=== PATIENT | female | born 1970 | race Caucasian/White ===

== ENCOUNTER 2020-10-02 10:18 | Day surgery (SDC) | payer MEDICARE ==
[2020-10-02] MEDS ORDERED: BUPIVACAINE 0.5% VIAL IJ ONE (10:19)
[2020-10-02] MEDS ORDERED: DIPRIVAN 200 MG/20 ML IV ONE (12:09)
[2020-10-02] MEDS ORDERED: Ketamine HCl 50 MG/ML ONE (12:09)
--- NOTE | 2020-10-02 14:33 | XRAY ---
Indication: Ganglion impar nerve. Intraoperative fluoroscopy was provided for 29 seconds. Single lateral digital spot image submitted for interpretation demonstrates posterior needle tip projecting just anterior to the coccyx. Small amount of contrast injected for needle tip placement. Correlate with intraoperative findings/report.
--- NOTE | 2020-10-02 15:12 | XRAY ---
29 seconds fluoroscopy time in surgery for ganglian impar nerve injection.
[2020-10-02] MEDS ORDERED: Lactated Ringers 1,000 ML IV ONE (16:07)
== END 2020-10-02 12:36 | disposition home or self-care (01) ==
LOC: SDC-PAIN 10:18
PROVIDERS: ATTEND Psychiatry & Neurology Pain Medicine
DX: M53.3 Sacrococcygeal disorders, not elsewhere classified (principal); F41.8 Other specified anxiety disorders; Z79.899 Other long term (current) drug therapy
CPT/HCPCS: 64520; 72220; 77002; 84703; J2704

== ENCOUNTER 2021-01-08 10:31 | Day surgery (SDC) | payer MEDICARE ==
[2021-01-08] MEDS ORDERED: Depo-Medrol 40 MG/ML IM ONE (10:32)
[2021-01-08] MEDS ORDERED: LIDOCAINE HCL 2% 100 MG/5 ML IJ ONE (10:32)
[2021-01-08] MEDS ORDERED: Ketamine HCl 50 MG/ML ONE (11:51)
[2021-01-08] MEDS ORDERED: DIPRIVAN 200 MG/20 ML IV ONE (11:51)
--- NOTE | 2021-01-08 12:39 | XRAY ---
Indication: Left L4-S1 MBB Intraoperative fluoroscopy provided for 17 seconds. Single digital spot image submitted for interpretation demonstrates posterior needle tips projecting over the expected left L4-S1 nerve roots. Correlate with intraoperative findings/report.
[2021-01-08] MEDS ORDERED: Lactated Ringers 1,000 ML IV ONE (16:12)
--- NOTE | 2021-01-10 09:44 | XRAY ---
17 seconds fluoroscopy time in surgery for left L4-S1 MBB.
== END 2021-01-08 12:20 | disposition home or self-care (01) ==
LOC: SDC-PAIN 10:31
PROVIDERS: ATTEND Psychiatry & Neurology Pain Medicine
DX: M47.816 Spondylosis without myelopathy or radiculopathy, lumbar region (principal); F41.9 Anxiety disorder, unspecified; F32.9 Major depressive disorder, single episode, unspecified; I73.9 Peripheral vascular disease, unspecified; G56.00 Carpal tunnel syndrome, unspecified upper limb; Z79.899 Other long term (current) drug therapy
CPT/HCPCS: 64493; 64494; 72020; 77002; 84703; J1030; J2704

== ENCOUNTER 2021-03-26 13:07 | Day surgery (SDC) | payer MEDICARE ==
[2021-03-26] MEDS ORDERED: Sodium Chloride 0.9(Preservative Free) 10 ML IJ ONE (13:08)
[2021-03-26] MEDS ORDERED: Depo-Medrol 40 MG/ML IM ONE (13:08)
[2021-03-26] MEDS ORDERED: Xylocaine 1% Vial 30 ML PF IJ ONE (13:08)
[2021-03-26] MEDS ORDERED: DIPRIVAN 200 MG/20 ML IV ONE (14:54)
[2021-03-26] MEDS ORDERED: Lactated Ringers 1,000 ML IV ONE (16:21)
--- NOTE | 2021-03-26 16:50 | XRAY ---
19 seconds fluoroscopy time in surgery for caudal ADIEL.
--- NOTE | 2021-03-26 17:49 | XRAY ---
Indication: Caudal ADIEL. Intraoperative fluoroscopy provided for 19 seconds. 2 digital spot images submitted for interpretation demonstrates caudal needle tip projecting mid to lower sacrum. Small amount of contrast injected for needle tip placement. Correlate with intraoperative findings/report.
== END 2021-03-26 15:10 | disposition home or self-care (01) ==
LOC: SDC-PAIN 13:07
PROVIDERS: ATTEND Psychiatry & Neurology Pain Medicine
DX: M54.16 Radiculopathy, lumbar region (principal); F41.9 Anxiety disorder, unspecified; F32.9 Major depressive disorder, single episode, unspecified; G56.00 Carpal tunnel syndrome, unspecified upper limb; M25.551 Pain in right hip; Z79.899 Other long term (current) drug therapy
CPT/HCPCS: 62323; 72100; 77003; 84703; J1030; J2001; J2704; Q9966

== ENCOUNTER 2021-04-23 09:27 | Day surgery (SDC) | payer MEDICARE ==
[2021-04-23] MEDS ORDERED: Depo-Medrol 40 MG/ML IM ONE (09:28)
[2021-04-23] MEDS ORDERED: BUPIVACAINE 0.5% VIAL IJ ONE (09:28)
[2021-04-23] MEDS ORDERED: DIPRIVAN 200 MG/20 ML IV ONE ×2 (10:39→11:01)
[2021-04-23] MEDS ORDERED: Lactated Ringers 1,000 ML IV ONE (16:27)
--- NOTE | 2021-04-24 11:33 | XRAY ---
37 total seconds fluoroscopy time in surgery for bilateral injections of the SI joints.
== END 2021-04-23 11:27 | disposition home or self-care (01) ==
LOC: SDC-PAIN 09:27
PROVIDERS: ATTEND Psychiatry & Neurology Pain Medicine
DX: M46.1 Sacroiliitis, not elsewhere classified (principal); F41.9 Anxiety disorder, unspecified; F32.9 Major depressive disorder, single episode, unspecified; M25.551 Pain in right hip; Z79.899 Other long term (current) drug therapy
CPT/HCPCS: 27096; 72202; 77002; 84703; G0260; J1030; J2704

== ENCOUNTER 2021-06-11 10:54 | Day surgery (SDC) | payer MEDICARE ==
[2021-06-11] MEDS ORDERED: Depo-Medrol 40 MG/ML IM ONE (10:55)
[2021-06-11] MEDS ORDERED: BUPIVACAINE 0.5% VIAL IJ ONE (10:55)
[2021-06-11] MEDS ORDERED: DIPRIVAN 200 MG/20 ML IV ONE (12:36)
--- NOTE | 2021-06-11 14:38 | XRAY ---
Indication: Bilateral hip injections. Intraoperative fluoroscopy provided for 19 seconds. 2 digital spot image submitted for interpretation demonstrates needle tip projecting lateral to the left and right femur necks. Small amount of contrast injected for both needle tip placement. Correlate with intraoperative findings/report.
--- NOTE | 2021-06-11 14:51 | XRAY ---
19 seconds fluoroscopy time in surgery for bilateral intra-articular injections of both hips.
[2021-06-11] MEDS ORDERED: Lactated Ringers 1,000 ML IV ONE (16:35)
== END 2021-06-11 12:59 | disposition home or self-care (01) ==
LOC: SDC-PAIN 10:54
PROVIDERS: ATTEND Psychiatry & Neurology Pain Medicine
DX: M16.0 Bilateral primary osteoarthritis of hip (principal); Z79.899 Other long term (current) drug therapy
CPT/HCPCS: 20610; 73521; 77002; 84703; J1030; J2704; Q9966

== ENCOUNTER 2021-07-16 15:50 | Day surgery (SDC) | payer MEDICARE ==
[2021-07-16] MEDS ORDERED: Depo-Medrol 40 MG/ML IM ONE (15:51)
[2021-07-16] MEDS ORDERED: BUPIVACAINE 0.5% VIAL IJ ONE (15:51)
[2021-07-16] MEDS ORDERED: DIPRIVAN 200 MG/20 ML IV ONE (16:57)
[2021-07-16] MEDS ORDERED: Lactated Ringers 1,000 ML IV ONE (17:48)
--- NOTE | 2021-07-16 19:02 | XRAY ---
Indication: Bilateral L4-S1 MBB. Intraoperative fluoroscopy provided for 11 seconds. Single digital spot image submitted for interpretation demonstrates posterior needle tips projecting over the expected left and right L4-S1 nerve roots. Correlate with intraoperative findings/report.
--- NOTE | 2021-07-17 08:40 | XRAY ---
11 seconds fluoroscopy time in surgery for bilateral L4-S1 MBB.
== END 2021-07-16 17:25 | disposition home or self-care (01) ==
LOC: SDC-PAIN 15:50
PROVIDERS: ATTEND Psychiatry & Neurology Pain Medicine
DX: M47.816 Spondylosis without myelopathy or radiculopathy, lumbar region (principal)
CPT/HCPCS: 64493; 64494; 72020; 77002; 84703; J1030; J2704

== ENCOUNTER 2021-07-24 21:50 | Emergency (ER) | payer MEDICARE ==
[2021-07-24] MEDS ORDERED: TYLENOL 325 MG PO ONE (22:26)
[2021-07-24] MEDS ORDERED: TYLENOL 325 MG ONE (22:29)
[2021-07-24 23:24] VITALS: O2SAT 99
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
[2021-07-25 00:02] VITALS: BP 123/85; PULSE 85
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
== END 2021-07-25 00:07 | disposition home or self-care (01) ==
LOC: ED 21:50
DX: R51.9 Headache, unspecified (principal); M54.2 Cervicalgia; Y04.0XXA Assault by unarmed brawl or fight, initial encounter; Z79.899 Other long term (current) drug therapy; Z79.891 Long term (current) use of opiate analgesic
CPT/HCPCS: 70450; 72125; 99284; A9270-GY

== ENCOUNTER 2021-07-25 17:57 | Emergency (ER) | payer MEDICARE ==
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
[2021-07-25 18:07] VITALS: O2SAT 99
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
[2021-07-25 20:36] VITALS: BP 140/87; PULSE 80
== END 2021-07-25 20:33 | disposition home or self-care (01) ==
LOC: ED 17:57
DX: R51.9 Headache, unspecified (principal); Y04.0XXD Assault by unarmed brawl or fight, subsequent encounter
CPT/HCPCS: 70486; 99283

== ENCOUNTER 2021-07-30 15:48 | Day surgery (SDC) | payer MEDICARE ==
[2021-07-30] MEDS ORDERED: Sodium Chloride 0.9(Preservative Free) 10 ML IJ ONE (15:49)
[2021-07-30] MEDS ORDERED: Depo-Medrol 80 MG/ML IM ONE (15:49)
[2021-07-30] MEDS ORDERED: DIPRIVAN 200 MG/20 ML IV ONE (17:04)
[2021-07-30] MEDS ORDERED: Lactated Ringers 1,000 ML IV ONE (17:31)
--- NOTE | 2021-07-30 18:29 | XRAY ---
Indication: Caudal ADIEL. Intraoperative fluoroscopy provided for 18 seconds. 2 digital spot image submitted for interpretation demonstrates midline caudal needle tip projecting mid sacrum. Small amount of contrast injected for needle tip placement. Correlate with intraoperative findings/report.
--- NOTE | 2021-07-30 19:06 | XRAY ---
18 seconds of fluoroscopy was used in surgery for a caudal ADIEL.
== END 2021-07-30 17:30 | disposition home or self-care (01) ==
LOC: SDC-PAIN 15:48
PROVIDERS: ATTEND Psychiatry & Neurology Pain Medicine
DX: M54.16 Radiculopathy, lumbar region (principal); Z79.899 Other long term (current) drug therapy
CPT/HCPCS: 62323; 72020; 77003; 84703; J1040; J2704; Q9966

== ENCOUNTER 2021-08-20 06:56 | Day surgery (SDC) | payer MEDICARE ==
[2021-08-20] MEDS ORDERED: Depo-Medrol 40 MG/ML IM ONE (06:57)
[2021-08-20] MEDS ORDERED: Decadron 4 MG INJ IV ONE (06:57)
[2021-08-20] MEDS ORDERED: Xylocaine 1% Vial 30 ML PF IJ ONE (06:57)
[2021-08-20] MEDS ORDERED: BUPIVACAINE 0.5% VIAL IJ ONE (06:57)
[2021-08-20] MEDS ORDERED: DIPRIVAN 200 MG/20 ML IV ONE (07:59)
--- NOTE | 2021-08-20 10:24 | XRAY ---
Indication: Left greater trochanter bursa injection. Intraoperative fluoroscopy provided for 27 seconds. Single digital spot image obtained prone submitted for interpretation demonstrates needle tip projecting lateral to the left greater trochanter. Small amount of contrast injected for needle tip placement. Correlate with intraoperative findings/report.
--- NOTE | 2021-08-20 10:27 | XRAY ---
Indication: Left piriformis injection. Intraoperative fluoroscopy provided for 10 seconds. Single digital spot image obtained prone submitted for interpretation demonstrates posterior needle tip projecting over the expected left piriformis muscle. Small amount of contrast injected for needle tip placement. Correlate with intraoperative findings/report.
--- NOTE | 2021-08-20 12:09 | XRAY ---
27 seconds of fluoroscopy was used in surgery for a left greater trochanteric bursa injection.
--- NOTE | 2021-08-20 12:20 | XRAY ---
10 seconds of fluoroscopy was used in surgery for a left piriformis injection.
[2021-08-20] MEDS ORDERED: Lactated Ringers 1,000 ML IV ONE (16:24)
== END 2021-08-20 09:20 | disposition home or self-care (01) ==
LOC: SDC-PAIN 06:56
PROVIDERS: ATTEND Psychiatry & Neurology Pain Medicine
DX: M79.18 Myalgia, other site (principal); M16.12 Unilateral primary osteoarthritis, left hip; Z79.899 Other long term (current) drug therapy
CPT/HCPCS: 20552; 20610; 72020; 73501; 77002; 84703; J1030; J1100; J2001; J2704; Q9966

== ENCOUNTER 2022-04-20 08:30 | Day surgery (SDC) | payer MEDICARE ==
[~2022-04-20 08:30] MED LIST: Lactated Ringers 1,000 ML IV SCH
[2022-04-20] MEDS ORDERED: Lactated Ringers 1,000 ML IV ONE (08:39)
[2022-04-20] MEDS ORDERED: Xylocaine-Mpf 2% 5 Ml Vial ONE (10:38)
[2022-04-20] MEDS ORDERED: DIPRIVAN 200 MG/20 ML IV ONE (10:38)
--- NOTE | 2022-04-20 10:47 | HP ---
PROCEDURE DATE: 04/20/2022 HISTORY OF PRESENT ILLNESS: Patient is 52 y/o with some upper esophagus dysphagia, solids and fluids, worse with bread at times and then she gets a panic attack. Last upper endoscopy was a long time ago. Family history negative for esophageal cancer. Has occasional epigastric pain. PAST MEDICAL HISTORY: She has got chronic back pain. CURRENT MEDICATIONS: Omeprazole, buspirone, Gabapentin, trazodone, Pregabalin, duloxetine, cyclobenzaprine, magnesium, hydroxyzine, hydrocodone/acetaminophen. ALLERGIES: NKDA. PAST SURGICAL HISTORY: Has had tonsillectomy, hysterectomy, cholecystectomy, she has had injections by Dr. Schmitt for chronic back pain, has had some migraines, anxiety, and depression in the past as well as chronic back pain, chronic pain disorder. Also included some hand surgery in the past. FAMILY HISTORY: Positive for cancer, but negative for esophageal cancer. SOCIAL HISTORY: 1/3 pack per day smoker. Denies alcohol abuse. REVIEW OF SYSTEMS: 14 systems reviewed negative or noncontributory other than above and per preadmission questionnaire. PHYSICAL EXAMINATION: GENERAL: No acute distress. HEENT: Sclerae nonicteric. NECK: No JVD. CHEST: Equal excursion. Nonlabored breathing. CVS: Regular rate and rhythm. ABDOMEN: Soft. No peritoneal signs. EXTREMITIES: No significant edema. NEURO: Alert and oriented, moving extremities symmetrically. PSYCH: Full mood and affect. IMPRESSION: 1. DYSPHAGIA. In need for upper endoscopy, possible biopsy, possible dilatation. Risks and benefits explained in detail, but not limited to, bleeding; infection; risk of bowel injury or perforation; risk of missed or nondiagnosis or incomplete exam; risk of bowel injury or perforation possibly requiring open procedure; risk of ongoing morbidity and mortality; general risk of anesthesia or sedation; possibility of no improvement in her swallowing possibly requiring other work-up and/or studies swallowing evaluations and/or even dilatation with different types of dilators. She understands that if dilatation performed and improves her swallowing, may need to repeat it again down the road. She understands and agrees to the planned procedure. Will proceed with EGD with possible biopsy, possible dilatation as an outpatient.
[2022-04-20 11:34] VITALS: O2SAT 99
[2022-04-20 11:44] VITALS: BP 109/62; PULSE 62
--- NOTE | 2022-04-21 13:46 | OP ---
SURGERY DATE: 04/20/2022 SURGERY TIME: 1038 PREOPERATIVE DIAGNOSIS: 1. DYSPHAGIA. POSTOPERATIVE DIAGNOSIS: 1. ASA CLASS II. 2. GASTRITIS. 3. PROXIMAL GASTRIC POLYP. 4. PROXIMAL ESOPHAGEAL NARROWING AND SPASM REQUIRING DILATATION. PROCEDURE: 1. Esophagogastroduodenoscopy with cold biopsy of antrum. 2. Cold biopsy gastric polyp. 3. Cold biopsy mid esophagus. 4. Esophageal balloon dilatation possible esophageal narrowing (size 20 balloon dilator). SURGEON: Dr. Jeff Ceballos. ANESTHESIA: MAC. ESTIMATED BLOOD LOSS: Minimal. INDICATIONS: As noted above. Risks and benefits explained in detail, but not limited to. Consent obtained. DESCRIPTION OF PROCEDURE AND FINDINGS: The patient as taken to the OR. MAC anesthesia introduced. After official time-out, no disagreement in planned procedure. Bite block positioned. Video gastroscope easily passed down the oropharynx. There was some proximal esophageal narrowing and spasm. There is no evidence of any obvious mass or lesion to biopsy, but given the symptoms in that area, it was felt it would benefit from dilatation. The scope was able to be just passed down through the gastroesophageal junction, it was about 39 cm, through the patent pylorus to the 3rd portion of the duodenum. 2nd and 3rd portion of the duodenum grossly unremarkable. Back in the stomach, she did have some gastric erythema consistent with some mild gastritis. Cold biopsy was taken to evaluate for Helicobacter pylori. Good hemostasis noted. On retroflex, the gastroesophageal junction was fairly snug at the scope. There were no signs of any large hiatal hernia. There was a small polyp in the proximal stomach. Cold biopsy polypectomy was accomplished. Good hemostasis noted. On retroflex view, the scope was straightened. No signs of any obvious large polyps, masses, or obstructing lesions. Scope pulled back to the gastroesophageal junction at approximately 39 cm. Z line was crisp. No signs of any erosions or masses in that area. She did have some tertiary contractions of the esophagus. Cold biopsy was taken in the esophagus to evaluate for eosinophilic esophagitis. Good hemostasis was noted. In the proximal esophagus, again narrowing and spasm where she is having some symptoms. There are no signs of any obvious masses to biopsy, but given her symptoms, it was felt it warranted a trial dilatation. Therefore, the scope was passed back down the stomach. 20 balloon dilator then carefully passed in the open space of the stomach. Pulled back up to the narrowed area in proximal esophagus and then carefully inflated. First stage 30 seconds, second stage 30 seconds, final stage size 20 dilator balloon was left up for a minute and 45 seconds to 2 minutes and then was released. The scope much more easily passed through this area back into the stomach and carefully withdrawn. There are no signs of any full thickness issues secondary to dilatation. The patient tolerated the procedure well. Please seen the anesthesia notes regarding her other issues. Otherwise, she tolerated the procedure itself well. There was no family to discuss any findings with.
== END 2022-04-20 11:50 | disposition home or self-care (01) ==
LOC: SDC 08:30
PROVIDERS: ATTEND Surgery
DX: K29.70 Gastritis, unspecified, without bleeding (principal); R13.10 Dysphagia, unspecified; Z80.9 Family history of malignant neoplasm, unspecified; K31.7 Polyp of stomach and duodenum; K22.2 Esophageal obstruction
CPT/HCPCS: 81025; C1726; J2704

== ENCOUNTER 2022-07-15 11:10 | Day surgery (SDC) | payer MEDICARE ==
[2022-07-15] MEDS ORDERED: Decadron 4 MG INJ IV ONE (11:11)
[2022-07-15] MEDS ORDERED: Depo-Medrol 40 MG/ML IM ONE (11:11)
[2022-07-15] MEDS ORDERED: Sodium Chloride 0.9(Preservative Free) 10 ML IJ ONE (11:11)
[2022-07-15] MEDS ORDERED: LIDOCAINE HCL 1% 50 MG/5 ML VL PF IJ ONE (11:11)
[2022-07-15] MEDS ORDERED: Lactated Ringers 1,000 ML IV ONE (14:31)
--- NOTE | 2022-07-15 18:12 | XRAY ---
Indication: Caudal ADIEL and bilateral piriformis injections. Intraoperative fluoroscopy provided for 45 seconds. 5 digital spot image submitted for interpretation demonstrates caudal needle tip projecting mid sacrum. Additional posterior needle tips projecting over the left and right piriformis muscles. Small amount of contrast injected for all needle tip placement. Correlate with intraoperative findings/report.
--- NOTE | 2022-07-15 18:31 | XRAY ---
45 seconds of fluoroscopy was used in surgery for a caudal ADIEL and bilateral piriformis injections.
== END 2022-07-15 13:14 | disposition home or self-care (01) ==
LOC: SDC-PAIN 11:10
PROVIDERS: ATTEND Psychiatry & Neurology Pain Medicine
DX: M54.16 Radiculopathy, lumbar region (principal); M79.18 Myalgia, other site; Z79.899 Other long term (current) drug therapy
CPT/HCPCS: 20552; 72220; 77002; 77003; 81025; J1030; J1100; J2001; Q9966

== ENCOUNTER 2022-10-19 18:47 | Emergency (ER) | payer MEDICARE ==
[2022-10-19] MEDS ORDERED: XYLOCAINE 1% HCL 20 ML MDV ONE ×2 (18:55→19:54)
[2022-10-19] MEDS ORDERED: XYLOCAINE 1% HCL 20 ML MDV IJ ONE (19:01)
[2022-10-19 19:03] VITALS: O2SAT 99
--- NOTE | 2022-10-19 19:27 | ERPHSYRPT ---
- History of Present Illness Time Seen by Provider: 10/19/22 19:22 Source: patient Patient Subjective Stated Complaint: Pt reports "The candle broke which scared my husbands dog, I tripped over the dog and landed on my hands and knees. The right hand was on glass." Triage Nursing Assessment: Patient ambulated to ED cot with steady upright gait holding right hand. Alert and oriented x3. No apparent respiratory distress. Right hand laceration after tripping over dog and right hand landing on glass. No apparent glass sticking out of wound. Minimal bleeding. Sensation intact in fingers, skin warm and pink, full ROM in fingers. Physician History: Patient is a 52-year-old female presents to our ED for evaluation of laceration to thenar eminence of the right hand. Patient states she tripped over her dog and landed on glass. Patient has foreign body sensation in her right thumb. Injury occurred just prior to arrival. No other injuries reported. No wrist elbow shoulder pain no BHT or LOC. No neck pain. Cervical spine cleared clinically. Patient states the fall was mechanical and not associated with any neuro or cardiovascular symptomology. No chest pain or shortness of breath. No nausea vomiting or diaphoresis. No numbness tingling or weakness. Patient voices no other complaints or concerns at this time. Portions of this note were created with voice recognition technology. There may be grammatical, spelling, punctuation or sound alike errors Timing/Duration: today Severity: moderate Modifying Factors: Improves With: nothing Associated Symptoms: denies symptoms Allergies/Adverse Reactions: No Known Drug Allergies Allergy (Verified 10/19/22 18:52) Home Medications: Buspirone HCl [Buspar] 15 mg PO BID PRN PRN 07/24/21 [History] Duloxetine HCl 60 mg PO DAILY 07/24/21 [History] Hydrocodone/Acetaminophen [Hydrocodone-Acetamin 5-325 mg] 1 tab PO BID PRN PRN 07/24/21 [History] Pregabalin 150 mg PO BID 07/24/21 [History] hydrOXYzine pamoate [Hydroxyzine Pamoate] 25 mg PO TID PRN PRN 07/24/21 [History] Magnesium Oxide [Magnesium] 500 mg PO DAILY 04/10/22 [History] Trazodone HCl 50 mg [Desyrel 50 mg] 1 tab PO DAILY 04/10/22 [History] Albuterol Sulfate [Proair Respiclick] 1 puff IN DAILY PRN 10/19/22 [History] Hx Tetanus, Diphtheria Vaccination/Date Given: Yes Hx Influenza Vaccination/Date Given: Yes Hx Pneumococcal Vaccination/Date Given: No Immunizations Up to Date: Yes Travel Risk - International Travel Have you traveled outside of the country in past 3 weeks: No - Coronavirus Screening Are you exhibiting any of the following symptoms?: No Close contact with a COVID-19 positive Pt in past 14-21 Days: No - Vaccine Status Have you recieved a Covid-19 vaccination: No - Review of Systems Constitutional: No Symptoms, No Fever, No Chills Eyes: No Symptoms Ears, Nose, & Throat: No Symptoms Respiratory: No Symptoms, No Cough, No Dyspnea Cardiac: No Symptoms, No Chest Pain, No Edema, No Syncope Abdominal/Gastrointestinal: No Symptoms, No Abdominal Pain, No Nausea, No Vomiting, No Diarrhea Genitourinary Symptoms: No Symptoms, No Dysuria Musculoskeletal: No Symptoms, No Back Pain, No Neck Pain Skin: No Symptoms, No Rash Neurological: No Symptoms, No Dizziness, No Focal Weakness, No Sensory Changes Psychological: No Symptoms Endocrine: No Symptoms Hematologic/Lymphatic: No Symptoms Immunological/Allergic: No Symptoms All Other Systems: Reviewed and Negative - Past Medical History Pertinent Past Medical History: Yes Neurological History: No Pertinent History ENT History: No Pertinent History Cardiac History: No Pertinent History Respiratory History: No Pertinent History Endocrine Medical History: No Pertinent History Musculoskeletal History: Degenerative Disk Disease, Osteoarthritis GI Medical History: No Pertinent History, GERD, Gallbladder Disease History: No Pertinent History Psycho-Social History: Anxiety, Depression Female Reproductive Disorders: No Pertinent History Other Medical History: PMHX: ANXIETY, DEPRESSION, PTSD, CARPAL TUNNEL SYNDROME, FX COCCYX, - Past Surgical History Past Surgical History: Yes Neuro Surgical History: No Pertinent History Cardiac: No Pertinent History Respiratory: No Pertinent History Gastrointestinal: Cholecystectomy Genitourinary: No Pertinent History Musculoskeletal: No Pertinent History, Orthopedic Surgery Female Surgical History: Tubal Ligation Other Surgical History: carpal tunnel right hand. receives injections in pain clinic - Social History Smoking Status: Current some day smoker How long have you smoked: 22 yrs Exposure to second hand smoke: Yes Drug Use: none Patient Lives Alone: Yes - Nursing Vital Signs Nursing Vital Signs: Initial Vital Signs Temperature 97.2 F 10/19/22 18:53 Pulse Rate 89 10/19/22 18:53 Respiratory Rate 16 10/19/22 18:53 Blood Pressure 110/97 10/19/22 18:53 O2 Sat by Pulse Oximetry 99 10/19/22 18:53 Pain Scale Pain Intensity 8 - Physical Exam General Appearance: no apparent distress, alert Eye Exam: PERRL/EOMI, eyes nml inspection Ears, Nose, Throat Exam: normal ENT inspection, TMs normal, pharynx normal, moist mucous membranes Neck Exam: normal inspection, non-tender, supple, full range of motion Respiratory Exam: normal breath sounds, lungs clear, airway intact, No respiratory distress Cardiovascular Exam: regular rate/rhythm, normal heart sounds, normal peripheral pulses Gastrointestinal/Abdomen Exam: soft, normal bowel sounds, No tenderness, No mass Back Exam: normal inspection, normal range of motion, No CVA tenderness, No vertebral tenderness Extremity Exam: normal inspection, normal range of motion, pelvis stable Neurologic Exam: alert, oriented x 3, cooperative, normal mood/affect, nml cerebellar function, nml station & gait, sensation nml, No motor deficits Skin Exam: normal color, warm, dry, No rash Lymphatic Exam: No adenopathy SpO2 Interpretation: normal SpO2: 99 O2 Delivery: Room Air Procedures - Laceration/Wound Repair Hand Time of Procedure: 19:51 Wound Location: Right Wound Length (cm): 1.5 Wound's Depth, Shape: superficial Wound Explored: clean Irrigated: Yes Hibiclens Prep: Yes Anesthesia: 1% Lidocaine Volume Anesthetic (ccs): 4 Wound Repaired With: sutures Suture Size/Type: 5-0, nylon Number of Sutures: 2 Layer Closure?: No Sterile Dressing Applied?: Yes Splint Applied?: No Sling Applied?: No - Course Nursing assessment & vital signs reviewed: Yes - Radiology Exams Hand X-ray Interpretation: Interpreted by me (No fractures or dislocations.) Ordered Tests: Active Orders 24 hr Category Date Time Status Wound Care STAT Care 10/19/22 19:01 Active HAND (MINIMUM 3 VIEWS) Stat Exams 10/19/22 19:19 Ordered Medication Summary Discontinued Medications Generic Name Dose Route Start Last Admin Trade Name Freq PRN Reason Stop Dose Admin Lidocaine HCl Confirm 10/19/22 18:55 Lidocaine Hcl 1% 20 Ml Mdv 20 Ml Ml Administered 10/19/22 18:56 Dose 10 ml .ROUTE .STK-MED ONE Lidocaine HCl 10 ml 10/19/22 19:01 10/19/22 19:02 Lidocaine Hcl 1% 20 Ml Mdv 20 Ml Ml IJ 10/19/22 19:02 10 ml STAT ONE Administration - Progress Progress: improved Progress Note: X-rays negative for fracture dislocation. Patient has a foreign body sensation in her right thenar eminence. Laceration is just superficial to the recurrent branch of the median nerve. We are concerned for injury to this nerve and possible retained foreign body. Case discussed with hand surgeon Dr. colby. Hand surgeon will see patient tomorrow morning Wednesday at 8 AM in his office. We will approximate the wound edges/laceration. We will give patient a dose of antibiotics prior to discharge. Patient agrees to follow-up as planned. She voices no other complaints or concerns at this time. Portions of this note were created with voice recognition technology. There may be grammatical, spelling, punctuation or sound alike errors 10/19/22 19:30 10/19/22 19:32 Counseled pt/family regarding: diagnosis, need for follow-up, rad results - Departure Departure Disposition: Home Clinical Impression: Fall, Hand laceration Condition: Stable Critical Care Time: No Referrals: NICOLASA COLBY MD [NON-STAFF PHY W/O PRIVILEGES] - Follow up/PCP as directed Additional Instructions: Discharge/Care Plan LORA FALK was seen on 10/19/22 in the Emergency Room. The patient was counseled regarding Diagnosis,Lab results, Imaging studies, need for follow up and when to return to the Emergency Room. Prescriptions given: Discharge Note I have spoken with the patient and/or caregivers. I have explained the patient's condition, diagnosis and treatment plan based on the information available to me at this time. I have answered the patient's and/or caregiver's questions and addressed any concerns. The patient and/or caregivers have as good understanding of the patient's diagnosis, condition and treatment plan as can be expected at this point. The vital signs have been stable. The patient's condition is stable and appropriate for discharge from the emergency department. The patient will pursue further outpatient evaluation with the primary care physician or other designated or consulting physician as outlined in the discharge instructions. The patient and/or caregivers are agreeable to this plan of care and follow-up instructions have been explained in detail. The patient and/or caregivers have received these instruction. The patient/and or caregivers are aware that any significant change in condition or worsening of symptoms should prompt an immediate return to this or the closest emergency department or call 911.
[2022-10-19] MEDS ORDERED: BACIGUENT PACKET TP ONE (19:45)
[2022-10-19] MEDS ORDERED: BACIGUENT PACKET ONE (19:46)
[2022-10-19] MEDS ORDERED: Rocephin 1000 MG INJ IM ONE ×2 (19:53)
[2022-10-19] MEDS ORDERED: Rocephin 1000 MG INJ ONE (19:54)
[2022-10-19 20:02] VITALS: BP 146/85; PULSE 76
--- NOTE | 2022-10-20 08:47 | XRAY ---
Indication: Pain and laceration. Comparison: None 3 view right hand demonstrates mild osteopenia and small benign-appearing sclerotic lesion 5th proximal phalanx, bone island versus healed fibrous cortical defect. No other bony, articular, or soft tissue abnormalities.
== END 2022-10-19 20:12 | disposition home or self-care (01) ==
LOC: ED 18:47
DX: S61.411A Laceration without foreign body of right hand, initial encounter (principal); W01.110A Fall on same level from slipping, tripping and stumbling with subsequent striking against sharp glass, initial encounter; Z79.899 Other long term (current) drug therapy; Z28.310 Unvaccinated for COVID-19; Z72.0 Tobacco use
CPT/HCPCS: 12001; 73130; 96372; 99283; J0696; A9270-GY

== ENCOUNTER 2023-06-09 15:08 | Day surgery (SDC) | payer MEDICARE ==
[2023-06-09] MEDS ORDERED: Depo-Medrol 40 MG/ML IM ONE (15:09)
[2023-06-09] MEDS ORDERED: LIDOCAINE HCL 1% 50 MG/5 ML VL PF IJ ONE (15:09)
[2023-06-09] MEDS ORDERED: BUPIVACAINE 0.5% VIAL IJ ONE (15:09)
[2023-06-09 15:40] LABS: HCG URINE TEST NEGATIVE (NEGATIVE)
[2023-06-09] MEDS ORDERED: DIPRIVAN 200 MG/20 ML IV ONE ×2 (16:52→17:05)
[2023-06-09] MEDS ORDERED: Lactated Ringers 1,000 ML IV ONE (17:20)
--- NOTE | 2023-06-09 19:11 | XRAY ---
Indication: Left L4-S1 RFA. Intraoperative fluoroscopy provided for 28 seconds. 3 digital spot images submitted for interpretation demonstrates posterior needle tips projecting over the expected left L4-S1 nerve roots. Correlate with intraoperative findings/report.
--- NOTE | 2023-06-10 08:59 | XRAY ---
28 seconds of fluoroscopy was used in surgery for a left L4-S1 RFA.
== END 2023-06-09 17:30 | disposition home or self-care (01) ==
LOC: SDC-PAIN 15:08
PROVIDERS: ATTEND Psychiatry & Neurology Pain Medicine
DX: M47.816 Spondylosis without myelopathy or radiculopathy, lumbar region (principal); Z79.899 Other long term (current) drug therapy
CPT/HCPCS: 64635; 64636; 72100; 77002; 81025; J1030; J2001; J2704

== ENCOUNTER 2023-06-16 11:49 | Day surgery (SDC) | payer MEDICARE ==
[2023-06-16] MEDS ORDERED: BUPIVACAINE 0.5% VIAL IJ ONE (11:50)
[2023-06-16] MEDS ORDERED: XYLOCAINE 1% HCL 20 ML MDV IJ ONE (11:50)
[2023-06-16] MEDS ORDERED: Depo-Medrol 40 MG/ML IM ONE (11:50)
[2023-06-16 13:30] LABS: HCG URINE TEST NEGATIVE (NEGATIVE)
[2023-06-16] MEDS ORDERED: DIPRIVAN 200 MG/20 ML IV ONE ×2 (14:21→14:30)
[2023-06-16] MEDS ORDERED: Xylocaine-Mpf 2% 5 Ml Vial ONE (14:21)
[2023-06-16] MEDS ORDERED: Lactated Ringers 1,000 ML IV ONE (15:01)
--- NOTE | 2023-06-16 16:37 | XRAY ---
Indication: Right L4-S1 RFA. Intraoperative fluoroscopy provided for 26 seconds. 4 digital spot images submitted for interpretation demonstrates posterior needle tips projecting over the expected right L4-S1 nerve roots. Correlate with intraoperative findings/report.
--- NOTE | 2023-06-17 09:54 | XRAY ---
26 seconds of fluoroscopy was used in surgery for a right L4-S1 RFA.
== END 2023-06-16 14:57 | disposition home or self-care (01) ==
LOC: SDC-PAIN 11:49
PROVIDERS: ATTEND Psychiatry & Neurology Pain Medicine
DX: M47.816 Spondylosis without myelopathy or radiculopathy, lumbar region (principal); Z79.899 Other long term (current) drug therapy
CPT/HCPCS: 64635; 64636; 72100; 77002; 81025; J1030; J2704

== ENCOUNTER 2023-12-22 12:12 | Day surgery (SDC) | payer MEDICARE ==
[2023-12-22] MEDS ORDERED: Depo-Medrol 40 MG/ML IM ONE (12:13)
[2023-12-22] MEDS ORDERED: Sodium Chloride 0.9(Preservative Free) 10 ML IJ ONE (12:13)
[2023-12-22 13:07] LABS: HCG URINE TEST NEGATIVE (NEGATIVE)
[2023-12-22] MEDS ORDERED: Lactated Ringers 1,000 ML IV ONE (14:42)
[2023-12-22] MEDS ORDERED: DIPRIVAN 200 MG/20 ML IV ONE (14:59)
--- NOTE | 2023-12-22 16:35 | XRAY ---
Indication: Caudal ADIEL. Intraoperative fluoroscopy provided for 23 seconds. 3 digital spot image submitted for interpretation demonstrates caudal needle tip projecting mid sacrum. Small amount of contrast injected for needle tip placement. Correlate with intraoperative findings/report.
--- NOTE | 2023-12-22 16:39 | XRAY ---
23 seconds of fluoroscopy was used in surgery for a caudal ADIEL.
== END 2023-12-22 15:28 | disposition home or self-care (01) ==
LOC: SDC-PAIN 12:12
PROVIDERS: ATTEND Psychiatry & Neurology Pain Medicine
DX: M54.16 Radiculopathy, lumbar region (principal)
CPT/HCPCS: 62323; 72220; 77003; 81025; J1030; J2704; Q9966